=== PATIENT | female | born 1950 | race Caucasian/White ===

== ENCOUNTER → 2017-07-08 | Day surgery (SDC) | payer MEDICARE, OTHER ==
[~2017-07-08] MED LIST: KETOROLAC TROMETHAMINE 30 MG/ML (IVP) VIAL IV PUSH ONE; LACTATED RINGER'S 1000 ML INJ 1,000 ML ONE; MIDAZOLAM HCL 2 MG/2 ML VIAL ONE; ONDANSETRON HCL 4 MG/2 ML VIAL IV PUSH ONE; PROPOFOL 200 MG/20 ML AMP IV ONE; ceFAZolin INJ 1,000 MG VIAL ONE
--- NOTE | 2017-07-08 08:38 | MP ---
cc: FRANSICO CHASE DATE OF SURGERY 07/08/2017 PREOPERATIVE DIAGNOSES Postmenopausal bleeding. Endometrial polyp. POSTOPERATIVE DIAGNOSES Postmenopausal bleeding. Endometrial polyp. PROCEDURE Hysteroscopy and D&C. SURGEON MD Rena ANESTHESIA General. ESTIMATED BLOOD LOSS 30 cc. COMPLICATIONS None. FINDINGS The patient had an extremely long endocervical canal but the polyp that was seen on ultrasound was clearly not present in the lower uterine segment or upper cervical endocervical canal. Instead there was a very small 1-2 mm fleshy growth on the left lower uterine segment. The endometrial cavity was otherwise completely atrophic and unremarkable. She did appear to have a small septated uterus. DESCRIPTION OF PROCEDURE The patient was brought to the operating room and following general anesthesia was placed in dorsal lithotomy position. Her vagina, abdomen and perineum were prepped and draped. The cervix was grasped with a single-tooth tenaculum and dilated to allow passage of the hysteroscope. The findings were as noted above. The hysteroscope was then removed and a four quadrant curettage was performed. Minimal tissue was obtained consistent with the presence of what appeared to be an atrophic endometrial lining. With no other pathology present and bleeding scant, all instruments were removed and the patient taken to the recovery room in good condition with all counts correct. She will be discharged home when stable and alert to follow up in one week in our office. Her discharge medication is Percocet. She is given instructions on physical activity and instructed to resume a regular diet as tolerated. Fransico Chase MD TGS/SSB /8:25 AM /8:36 AM
== END | disposition home or self-care (01) ==
LOC: ESDC 06:30
PROVIDERS: ATTEND Obstetrics & Gynecology
DX: N95.0 Postmenopausal bleeding (principal); N84.0 Polyp of corpus uteri
CPT/HCPCS: 00952; 58558; 88305; J0690; J1885; J2250; J2405; J3010; J7120